=== PATIENT | male | born 1970 ===

== ENCOUNTER 2017-09-16 01:32 | Inpatient (IN) | payer SELFPAY ==
--- NOTE | 2017-09-16 01:37 | C.PDOC ---
History Of Present Illness Patient presents to the ER after he was found on the bathroom floor by his , last seen in [facility] at around 22:00. Patient presents now with a laceration to the right forehead and post ictal, patient has a Hx of similar years ago. Time Seen by Provider: 09/16/17 01:36 History Per: Patient History/Exam Limitations: no limitations Onset/Duration Of Symptoms: Hrs Current Symptoms Are (Timing): Still Present Severity: Moderate Pain Scale Rating Of: 4 Recent travel outside of the [place]: No Additional History Per: Family Past Medical History Reviewed: Historical Data, Nursing Documentation, Vital Signs Vital Signs: Last Vital Signs Temp 97.6 F 09/16/17 01:41 Pulse 73 09/16/17 02:52 Resp 18 09/16/17 02:52 BP 125/92 H 09/16/17 02:52 Pulse Ox 95 09/16/17 03:15 Family History: States: No Known Family Hx Review Of Systems Constitutional: Positive for: Sweats Cardiovascular: Negative for: Chest Pain Respiratory: Negative for: Cough, Shortness of Breath Gastrointestinal: Negative for: Nausea, Vomiting Musculoskeletal: Positive for: Back Pain Skin: Positive for: Other (Laceration to right forehead) Neurological: Positive for: Headache, Other (Post ictal) Psych: Negative for: Anxiety Physical Exam - Physical Exam Appears: Non-toxic, Confused (Slightly) Skin: Warm, Dry, Diaphoretic (Slightly) Head: Normacephalic, Laceration (irregular 5cm to right eye brow) Eye(s): bilateral: Normal Inspection, PERRL, EOMI Oral Mucosa: Moist Neck: No Midline Cervical Tenderness, No Paracervical Tenderness, Supple Chest: Symmetrical, No Tenderness Cardiovascular: Rhythm Regular Respiratory: No Rales, No Rhonchi, No Wheezing Gastrointestinal/Abdominal: Soft, No Tenderness Back: Normal Inspection Extremity: Other (Moves all extremities) Extremity: Bilateral: Atraumatic Pulses: Left Dorsalis Pedis: Normal, Right Dorsalis Pedis: Normal Neurological/Psych: Oriented x3 Gait: Unable To Assess ED Course And Treatment - Laboratory Results Result Diagrams: 09/16/17 02:01 09/16/17 02:01 ECG: Interpreted By Me, Viewed By Me ECG Rhythm: Sinus Rhythm (77), Nonspecific Changes O2 Sat by Pulse Oximetry: 95 Pulse Ox Interpretation: Normal - Radiology CXR: Interpreted by Me, Viewed By Me Progress Note: Blood work, CT cervical spine, CT head, and CT maxillofacial ordered. Disposition Discussed With Dr.: Flavio Waldron Comment: accepted the pt on his service and took over the care at 3:57 AM Doctor Will See Patient In The: ED Counseled Patient/Family Regarding: Studies Performed, Diagnosis - Disposition Disposition: HOSPITALIZED Disposition Time: 01:37 Condition: FAIR - POA Present On Arrival: Falls Or Trauma - Clinical Impression Clinical Impression: Syncope and collapse, Laceration of forehead - Scribe Statement The provider has reviewed the documentation as recorded by the Scribe Anish Santiago All medical record entries made by the Scribe were at my direction and personally dictated by me. I have reviewed the chart and agree that the record accurately reflects my personal performance of the history, physical exam, medical decision making, and the department course for this patient. I have also personally directed, reviewed, and agree with the discharge instructions and disposition. Decision To Admit - Pt Status Changed To: Hospital Disposition Of: Inpatient - Admit Certification Admit to Inpatient:: After my assessment, the patient will require hospitalization for at least two midnights. This is because of the severity of symptoms shown, intensity of services needed, and/or the medical risk in this patient being treated as an outpatient. - InPatient: Physician Admission Certification: I certify that this patient requires 2 or more midnights of care for the following reason:: After my assessment, the patient will require hospitalization for at least two midnights. This is because of the severity of symptoms shown, intensity of services needed, and/or the medical risk in this patient being treated as an outpatient. - . Bed Request Type: Telemetry Admitting Physician: Flavio Waldron Patient Diagnosis: Syncope and collapse, Laceration of forehead
[2017-09-16 02:08] LABS: BASO # 0.1 K/uL (0.0-0.2); BASO % 0.9 % (0.0-2.0); EOS # 0.2 K/uL (0.0-0.7); EOS % 2.8 % (0.0-4.0); HEMOGLOBIN 14.7 g/dL (12.0-18.0); LYMPH # 3.4 K/uL (1.0-4.3); LYMPH % 40.8 % (20.0-40.0); MEAN CELL VOLUME 80.3 fL (80.0-94.0); MEAN CORPUSCULAR HEMOGLOBIN 28.2 pg (27.0-31.0); MEAN CORPUSCULAR HGB CONC 35.1 g/dL (33.0-37.0); MEAN PLATELET VOLUME 8.2 fL (7.2-11.7); MONO # 0.5 K/uL (0.0-0.8); MONO % 6.4 % (0.0-10.0); NEUT # 4.1 K/uL (1.8-7.0); NEUT % 49.1 % (50.0-75.0); NRBC % 0.1 % (0.0-2.0); RBC 5.24 Mil/uL (4.40-5.90); RED CELL DISTRIBUTION WIDTH 14.1 % (11.5-14.5); WHITE BLOOD COUNT 8.3 K/uL (4.8-10.8)
[2017-09-16 02:13] LABS: PROTHROMBIN TIME 10.9 SECONDS (9.7-12.2)
[2017-09-16 02:16] LABS: ALB/GLOB RATIO 1.2 (1.0-2.1); ALBUMIN 4.5 g/dL (3.5-5.0); ALT/SGPT 65 U/L (21-72); AST/SGOT 39 U/L (17-59); BLOOD UREA NITROGEN 15 mg/dL (9-20); CALCIUM 9.7 mg/dl (8.6-10.4); GFR AFRICAN-AMERICAN > 60; GFR NON-AFRICAN AMERICAN > 60
--- NOTE | 2017-09-16 03:04 | CT ---
EXAM: CT Head Without Intravenous Contrast CLINICAL HISTORY: 46 years old, male; Pain; Headache; Additional info: Head trauma. Fell, unknown resone TECHNIQUE: Axial computed tomography images of the head/brain without intravenous contrast. All CT scans at this facility use one or more dose reduction techniques, viz.: automated exposure control; ma/kV adjustment per patient size (including targeted exams where dose is matched to indication; i.e. head); or iterative reconstruction technique. Coronal and sagittal reformatted images were created and reviewed. COMPARISON: No relevant prior studies available. FINDINGS: Limitations: Suboptimal positioning. Brain: Mild atrophy. No intracranial hemorrhage. No mass. Few scattered foci of decreased attenuation within periventricular/subcortical white matter. No edema. Ventricles: No hydrocephalus. Bones/joints: No calvarial fracture. Mastoid air cells: No mastoid effusion. IMPRESSION: 1. No intracranial hemorrhage. 2. Nonspecific white matter changes. 3. See facial bone CT report for additional details. 4. Incidental/non-acute findings are described above.
--- NOTE | 2017-09-16 03:08 | CT ---
EXAM: CT Cervical Spine Without Intravenous Contrast CLINICAL HISTORY: 46 years old, male; Pain; Neck pain; Additional info: Head trauma TECHNIQUE: Axial computed tomography images of the cervical spine without intravenous contrast. All CT scans at this facility use one or more dose reduction techniques, viz.: automated exposure control; ma/kV adjustment per patient size (including targeted exams where dose is matched to indication; i.e. head); or iterative reconstruction technique. Coronal and sagittal reformatted images were created and reviewed. COMPARISON: No relevant prior studies available. FINDINGS: Limitations: Suboptimal positioning. Vertebrae: No acute fracture. Straightening of cervical spine. Anterior osteophytes. Discs/spinal canal/neural foramina: No significant spinal stenosis. Soft tissues: Unremarkable. Lymph nodes: Calcified hilar lymph node. Lung apices: Unremarkable as visualized. IMPRESSION: 1. No fracture. 2. See facial bone CT report for additional details. 3. Incidental/non-acute findings are described above.
--- NOTE | 2017-09-16 03:12 | CT ---
EXAM: CT Maxillofacial Without Intravenous Contrast CLINICAL HISTORY: 46 years old, male; Pain; Eye pain; Right; Additional info: Head trauma TECHNIQUE: Axial computed tomography images of the face without intravenous contrast. All CT scans at this facility use one or more dose reduction techniques, viz.: automated exposure control; ma/kV adjustment per patient size (including targeted exams where dose is matched to indication; i.e. head); or iterative reconstruction technique. Coronal and sagittal reformatted images were created and reviewed. COMPARISON: No relevant prior studies available. FINDINGS: Bones/joints: No acute fracture. Soft tissues: RIGHT periorbital soft tissue swelling/irregularity. Few small radiopaque foreign bodies and/or calcifications about RIGHT periorbital region. Dermal calcifications. Orbits: Unremarkable as visualized. Sinuses: Scattered minimal to mild mucosal thickening. Few retention cysts. No air-fluid levels. Dental: Periapical lucency compatible with dental disease. IMPRESSION: 1. No fracture. 2. Incidental/non-acute findings are described above.
[2017-09-16] MEDS ORDERED: Lidocaine Hydrochloride 5 ML INJ ONE (03:36)
--- NOTE | 2017-09-16 04:32 | CP.PCM.HP ---
<Brad Lanier - Last Filed: 09/16/17 05:25> History of Present Illness - History of Present Illness History of Present Illness: CC: fall PMD: None FULL CODE This patient is a 46yo M who is coming to the hospital s/p fall at 10:00pm witnessed by ; he states he does not remember any of the event and has a laceration on his right forehead (now sutured and closed). he states that this happened to him one year ago, and was never told why it happens. He denies any inciting events, denies chest pain before the fall, current chest pain, or any other symptoms; denies fevers/chills, REAVES, CP, SOB, abdominal pain, N/V/D, dysuria/urgency/frequency, or lower extremity swelling/pain. As per mother who lives with with him, she states this happened one year prior very similarly. She saw him shaking on the ground, convulsing. The patient denies any tongue biting/fecal incontinence/urinary incontinence. He has never been on seizure medication. PMhx: denies Medications: Denies Allergies: Denies Surgeries: Denies FamHx: DM; denies cancer or other medical problems Social: lives at home with , independent in IADL and ADL, former smoker 1/2- 1pack for 20 years, denies EtOH or illicit drug use Present on Admission - Present on Admission Any Indicators Present on Admission: Yes History of DVT/PE: No History of Uncontrolled Diabetes: No Urinary Catheter: No Decubitus Ulcer Present: No Past Patient History - Past Social History Smoking Status: Never Smoked - PSYCHIATRIC Hx Substance Use: No - SURGICAL HISTORY Hx Surgeries: No Meds Allergies/Adverse Reactions: Allergies Allergy/AdvReac Type Severity Reaction Status Date / Time No Known Allergies Allergy Unverified 09/16/17 01:48 Physical Exam - Constitutional Additional comments: obvious scar on forehead, sutured with dermabond, no bleeding right eye red, and swollen - Head Exam Head Exam: absent: ATRAUMATIC - Eye Exam Eye Exam: EOMI, PERRL. absent: Scleral icterus - ENT Exam ENT Exam: Mucous Membranes Moist Additional comments: tongue biting present - Neck Exam Neck exam: Positive for: Full Rom. Negative for: Lymphadenopathy - Respiratory Exam Respiratory Exam: Clear to Auscultation Bilateral, NORMAL BREATHING PATTERN. absent: Rales, Rhonchi, Wheezes - Cardiovascular Exam Cardiovascular Exam: REGULAR RHYTHM, RRR, +S1, +S2. absent: Clicks, Diastolic murmur, JVD, Systolic Murmur - GI/Abdominal Exam GI & Abdominal Exam: Normal Bowel Sounds, Soft. absent: Organomegaly, Pulsatile Mass, Rebound, Tenderness Additional comments: no surgical scars noted - Extremities Exam Extremities exam: Positive for: full ROM. Negative for: calf tenderness, joint swelling, tenderness - Back Exam Back exam: NORMAL INSPECTION. absent: CVA tenderness (L), CVA tenderness (R) - Neurological Exam Neurological exam: Alert, Oriented x3 Additional comments: ANOx3, intact sensorium - Psychiatric Exam Psychiatric exam: Normal Affect - Skin Skin Exam: Warm Results - Vital Signs Recent Vital Signs: Last Vital Signs Temp 97.6 F 09/16/17 01:41 Pulse 73 09/16/17 02:52 Resp 18 09/16/17 02:52 BP 125/92 H 09/16/17 02:52 Pulse Ox 95 09/16/17 03:59 - Labs Result Diagrams: 09/16/17 02:01 09/16/17 02:01 Labs: Laboratory Results - last 24 hr 09/16/17 09/16/17 09/16/17 02:01 02:01 02:01 WBC 8.3 RBC 5.24 Hgb 14.7 Hct 42.0 MCV 80.3 MCH 28.2 MCHC 35.1 RDW 14.1 Plt Count 286 MPV 8.2 Neut % (Auto) 49.1 L Lymph % (Auto) 40.8 H Holmes % (Auto) 6.4 Eos % (Auto) 2.8 Baso % (Auto) 0.9 Neut # (Auto) 4.1 Lymph # (Auto) 3.4 Holmes # (Auto) 0.5 Eos # (Auto) 0.2 Baso # (Auto) 0.1 PT 10.9 INR 1.0 APTT 31 Sodium 143 Potassium 4.0 Chloride 100 Carbon Dioxide 25 Anion Gap 22 H BUN 15 Creatinine 1.2 Est GFR ( Amer) > 60 Est GFR (Non-Af Amer) > 60 Random Glucose 155 H Calcium 9.7 Total Bilirubin 0.7 AST 39 ALT 65 Alkaline Phosphatase 113 Total Protein 8.1 Albumin 4.5 Globulin 3.6 Albumin/Globulin Ratio 1.2 Alcohol, Quantitative 09/16/17 02:55 WBC RBC Hgb Hct MCV MCH MCHC RDW Plt Count MPV Neut % (Auto) Lymph % (Auto) Holmes % (Auto) Eos % (Auto) Baso % (Auto) Neut # (Auto) Lymph # (Auto) Holmes # (Auto) Eos # (Auto) Baso # (Auto) PT INR APTT Sodium Potassium Chloride Carbon Dioxide Anion Gap BUN Creatinine Est GFR ( Amer) Est GFR (Non-Af Amer) Random Glucose Calcium Total Bilirubin AST ALT Alkaline Phosphatase Total Protein Albumin Globulin Albumin/Globulin Ratio Alcohol, Quantitative < 10 Assessment & Plan - Assessment and Plan (Free Text) Assessment: 46yo M admitted for syncope, likely 2nd seizure Syncope -most likely 2nd seizure as per symptoms -f/u EEG -f/u Neuro recs; Dr. Shepherd; thank you for your help -f/u brain MRI -f/u NICKI -EKG with nonspecific T wave changes and localized ST segment elevations -f/u EKG -f/u mag and phos; other electrolytes WNL -f/u Echo Proph -chemical DVT prophylaxis contraindicated w/ recent head trauma -GI prophylaxis not indicated Discussed and seen with Dr. Vanita Lanier PGY2 Brian WATTS Decision To Admit - Pt Status Changed To: Hospital Disposition Of: Inpatient - Admit Certification Admit to Inpatient:: After my assessment, the patient will require hospitalization for at least two midnights. This is because of the severity of symptoms shown, intensity of services needed, and/or the medical risk in this patient being treated as an outpatient. - InPatient: Physician Admission Certification:: new onset seizure - . Bed Request Type: Telemetry Admitting Physician: Flavio Waldron <Flavio Waldron - Last Filed: 09/16/17 06:42> Results - Vital Signs Recent Vital Signs: Last Vital Signs Temp 97.9 F 09/16/17 04:52 Pulse 72 09/16/17 04:52 Resp 16 09/16/17 04:52 BP 133/87 09/16/17 04:52 Pulse Ox 97 09/16/17 04:52 - Labs Result Diagrams: 09/16/17 02:01 09/16/17 02:01 Labs: Laboratory Results - last 24 hr 09/16/17 09/16/1718 02:01 02:01 02:01 WBC 8.3 RBC 5.24 Hgb 14.7 Hct 42.0 MCV 80.3 MCH 28.2 MCHC 35.1 RDW 14.1 Plt Count 286 MPV 8.2 Neut % (Auto) 49.1 L Lymph % (Auto) 40.8 H Holmes % (Auto) 6.4 Eos % (Auto) 2.8 Baso % (Auto) 0.9 Neut # (Auto) 4.1 Lymph # (Auto) 3.4 Holmes # (Auto) 0.5 Eos # (Auto) 0.2 Baso # (Auto) 0.1 PT 10.9 INR 1.0 APTT 31 Sodium 143 Potassium 4.0 Chloride 100 Carbon Dioxide 25 Anion Gap 22 H BUN 15 Creatinine 1.2 Est GFR ( Amer) > 60 Est GFR (Non-Af Amer) > 60 Random Glucose 155 H Calcium 9.7 Phosphorus Magnesium Total Bilirubin 0.7 AST 39 ALT 65 Alkaline Phosphatase 113 Total Creatine Kinase CK-MB (Mass) Troponin I Total Protein 8.1 Albumin 4.5 Globulin 3.6 Albumin/Globulin Ratio 1.2 Triglycerides Cholesterol LDL Cholesterol Direct HDL Cholesterol Free T4 TSH 3rd Generation Alcohol, Quantitative 09/16/17 09/16/17 09/16/17 02:55 04:44 04:44 WBC RBC Hgb Hct MCV MCH MCHC RDW Plt Count MPV Neut % (Auto) Lymph % (Auto) Holmes % (Auto) Eos % (Auto) Baso % (Auto) Neut # (Auto) Lymph # (Auto) Holmes # (Auto) Eos # (Auto) Baso # (Auto) PT INR APTT Sodium Potassium Chloride Carbon Dioxide Anion Gap BUN Creatinine Est GFR ( Amer) Est GFR (Non-Af Amer) Random Glucose Calcium Phosphorus 2.7 Magnesium 2.1 Total Bilirubin AST ALT Alkaline Phosphatase Total Creatine Kinase 274 H CK-MB (Mass) 1.46 Troponin I 0.0130 Total Protein Albumin Globulin Albumin/Globulin Ratio Triglycerides 702 H Cholesterol 314 H LDL Cholesterol Direct 104 HDL Cholesterol 33 Free T4 1.20 TSH 3rd Generation 1.58 Alcohol, Quantitative < 10 Attending/Attestation - Attestation I have personally seen and examined this patient.: Yes I have fully participated in the care of the patient.: Yes I have reviewed all pertinent clinical information: Yes Notes (Text): Assessment * Seizure episode as described by patient mother. Patient has tounge bite underside on left side. H/o menengitis during child ng, similar episode 1 yr back, but no other episode as per the patent and mother. Patient doesn't drive, but works in warehouse, does loading and unloading. Injuries form the episode right forehead laceration, right knee scraping. Plan IVF EEG, MRI without contrast Suggest to be on antiepileptic, await EEG, MRI, and neurology input regarding same. See orders for detail.
[2017-09-16 05:18] LABS: CK-MB 1.46 ng/mL (0.0-3.38); TROPONIN I 0.013 ng/mL (0.00-0.120)
[2017-09-16] MEDS ORDERED: Tetanus/Diphtheria Toxoids 0.5 ml Syringe IM ONE (05:22)
[2017-09-16 09:47] LABS: URINE AMORPHOUS SEDIMENT RARE /ul (<OCC); URINE BACTERIA RARE (<OCC); URINE BILIRUBIN NEGATIVE (NEGATIVE); URINE BLOOD 1+ (NEGATIVE); URINE CLARITY Hazy (Clear); URINE COLOR Yellow (YELLOW); URINE GLUCOSE (UA) NORMAL (Normal); URINE LEUKOCYTE ESTERASE NEG Leu/uL (Negative); URINE PROTEIN NEGATIVE (NEGATIVE); URINE UROBILINOGEN NORMAL mg/dL (0.2-1.0)
[2017-09-16] MEDS: Pantoprazole 40 mg EC Tab PO SCH (09:47)
--- NOTE | 2017-09-16 09:55 | RAD ---
HISTORY: trauma COMPARISON: None TECHNIQUE: Chest one view . FINDINGS: LUNGS: No focal consolidation is seen. PLEURA: No pleural effusion is identified. CARDIOVASCULAR: Heart size is within normal limits. OSSEOUS STRUCTURES: Visualized osseous structures are unremarkable. VISUALIZED UPPER ABDOMEN: Unremarkable. OTHER FINDINGS: None. IMPRESSION: No acute cardiopulmonary process seen.
[2017-09-16 10:54] LABS: CK-MB 2.09 ng/mL (0.0-3.38)
[2017-09-16 11:13] LABS: BARBITURATES, UR NEGATIVE (NEGATIVE); BENZODIAZEPINES, UR NEGATIVE (NEGATIVE); OPIATES, UR NEGATIVE (NEGATIVE); PHENCYCLIDINE, UR NEGATIVE (NEGATIVE)
--- NOTE | 2017-09-16 12:39 | MRI ---
PROCEDURE: MRI BRAIN WITHOUT CONTRAST HISTORY: seizures COMPARISON: Unenhanced head CT 09/16/2017. TECHNIQUE: Multiplanar, multisequence MR images of the brain were obtained without intravenous contrast enhancement. FINDINGS: HEMORRHAGE: None DWI: No evidence of an acute or early subacute infarction. BRAIN PARENCHYMA: Trace subcortical white matter changes are appreciate the bilateral frontal and temporal lobes as well as the left parietal lobe the spare the corpus callosum and is well as remaining white matter throughout the remainder of the brain. This is a nonspecific pattern could reflect early chronic microangiopathy in a patient with a vasculopathic disorder, but if not, then hypertension or migraine headaches or other pathologies are not excluded including vasculitis Lyme disease and demyelination and follow-up MRI with contrast is advised to complete MR evaluation of the brain. Remainder the brain appears unremarkable. VENTRICLES: Unremarkable. No hydrocephalus. CRANIUM: Unremarkable. ORBITS: Grossly unremarkable. PARANASAL SINUSES/MASTOIDS: Trace bilateral maxillary sinus disease incidentally noted. VASCULAR SYSTEM: Skull base flow voids intact. OTHER FINDINGS: None. IMPRESSION: Infrequent subcortical white matter changes are appreciated which are minimal finding but abnormal for patient 38 years unless she has a vasculopathic disorder, in which case could reflect early chronic microangiopathy. Follow-up MRI is advised with contrast there is no prior history of such. No evidence intra hemorrhage, mass effect, cortical edema or acute/ subacute brain infarction at this time.
--- NOTE | 2017-09-16 16:04 | CARD ---
APPROVED REPORT EXAM: Two-dimensional and M-mode echocardiogram with Doppler and color Doppler. Other Information Quality : [employer] : INDICATION Syncope Fall 2D DIMENSIONS IVSd1.3 (0.7-1.1cm)LVDd3.4 (3.9-5.9cm) PWd1.3 (0.7-1.1cm)LVDs2.1 (2.5-4.0cm) FS (%) 37.5 %LVEF (%)68.8 (>50%) M-Mode DIMENSIONS Left Atrium (MM)2.79 (2.5-4.0cm)Aortic Root3.43 (2.2-3.7cm) Aortic Cusp Exc.1.99 (1.5-2.0cm) Mitral Valve MV E Adrcaoeh00.0cm/sMV A Ordxfydx70.0cm/sE/A ratio1.2 TDI E/Lateral E'0.0E/Medial E'0.0 Tricuspid Valve TR Peak Plhnyjnp682jw/sTR Peak Gr.22mmHg LEFT VENTRICLE The left ventricle is normal size. There is normal left ventricular wall thickness. The left ventricular systolic function is normal. The left ventricular ejection fraction is within the normal range. There is normal LV segmental wall motion. The left ventricular diastolic function is normal. RIGHT VENTRICLE The right ventricle is normal size. There is normal right ventricular wall thickness. The right ventricular systolic function is normal. ATRIA The left atrium size is normal. The right atrium size is normal. The interatrial septum is intact with no evidence for an atrial septal defect. AORTIC VALVE The aortic valve is normal in structure. No aortic regurgitation is present. MITRAL VALVE The mitral valve is normal in structure. There is no mitral valve regurgitation noted. TRICUSPID VALVE The tricuspid valve is normal in structure. There is trace to mild tricuspid regurgitation. Right ventricular systolic pressure is estimated at less than 30 mmHg. PULMONIC VALVE The pulmonary valve is normal in structure. GREAT VESSELS The aortic root is normal in size. The IVC is normal in size and collapses >50% with inspiration. PERICARDIAL EFFUSION There is no pericardial effusion. <Conclusion> Normal bi-ventricular function. No valvular abnormality. No pericardial effusion.
[2017-09-16] MEDS: (Novolog) Insulin Aspart, Recombinant 100 u/ml 10 ml vial SC SCH ×2 (16:48→21:30)
[2017-09-16 17:03] LABS: CK-MB 1.34 ng/mL (0.0-3.38)
--- NOTE | 2017-09-16 17:39 | CP.PCM.PCO ---
Physician Communication Note - Physician Communication Note Physician Communication Note: Patient with right forhead and brow laceration Assessment & Plan - Assessment and Plan (Free Text) Assessment: CT scan reviewed. There appears to be 2 small califications o superior and lateral to the right eye which could be metalic foreign body or glass. Clinically, the laceration is well approximated. There is no infection. THe wound was well irrigated before being closed. Plan to let heal. If the FB bothers him because it is palpable, it can be removed at a later time after his acute hospitalization is resolved.
--- NOTE | 2017-09-16 17:42 | CP.PCM.CON ---
History of Present Illness - History of Present Illness History of Present Illness: Surgery- Dr. Larose Reason for Consult: Possible foreign body s/p fall 46M presents to [facility] ED s/p fall last night most likely 2/2 seizure and subsequently had a right right forehead laceration. Laceration was closed last night and was copiously irrigated. Prior to closing the wound, X-Rays were taken with on foreign body identified at that time. Patient denies fevers, cjills, chest pain, shortness of breath, changes in vision. PMH: denies PSH: Denies ALL: NKDA SocialHx: former smoker 1/2 ppd for 20 years. denies etoh or recreational drug use Review of Systems - Review of Systems All systems: reviewed and no additional remarkable complaints except - Constitutional Constitutional: As Per HPI Past Patient History - Past Medical History & Family History Past Medical History?: Yes - Past Social History Smoking Status: Never Smoked - NEUROLOGICAL Hx Syncope: Yes - MUSCULOSKELETAL/RHEUMATOLOGICAL Hx Falls: Yes - PSYCHIATRIC Hx Substance Use: No - SURGICAL HISTORY Hx Surgeries: No - ANESTHESIA Hx Anesthesia: No Hx Anesthesia Reactions: No Hx Malignant Hyperthermia: No Meds Allergies/Adverse Reactions: Allergies Allergy/AdvReac Type Severity Reaction Status Date / Time No Known Allergies Allergy Unverified 09/16/17 01:48 - Medications Medications: Current Medications Acetaminophen (Tylenol 325mg Tab) 650 mg PO Q6 PRN PRN Reason: Fever >100.4 F Insulin Aspart (Novolog) 0 unit SC ACHS [facility] PRN Reason: Protocol Last Admin: 09/16/17 16:48 Dose: Not Given Ketorolac Tromethamine (Toradol) 15 mg IV Q6 PRN PRN Reason: Pain, severe (8-10) Ondansetron HCl (Zofran Inj) 4 mg IVP Q6 PRN PRN Reason: Nausea/Vomiting Pantoprazole Sodium (Protonix Ec Tab) 40 mg PO DAILY [facility] Last Admin: 09/16/17 09:47 Dose: 40 mg Physical Exam - Constitutional Appears: Non-toxic, No Acute Distress - Head Exam Additional comments: Right forehead laceration. Closed w/ dermabond no signs of overt foreign body Fozia-orbital swelling 2/2 trauma and fall - Eye Exam Eye Exam: EOMI, PERRL - Neck Exam Neck exam: Positive for: Normal Inspection - Respiratory Exam Respiratory Exam: NORMAL BREATHING PATTERN. absent: Accessory Muscle Use, Respiratory Distress - Cardiovascular Exam Cardiovascular Exam: +S1, +S2. absent: Bradycardia, Tachycardia - GI/Abdominal Exam GI & Abdominal Exam: Soft. absent: Bruit, Distended, Firm, Guarding, Tenderness - Neurological Exam Neurological exam: Alert, Oriented x3 - Skin Skin Exam: Intact, Warm Results - Vital Signs Recent Vital Signs: Last Vital Signs Temp 98.4 F 09/16/17 12:50 Pulse 65 09/16/17 10:00 Resp 20 09/16/17 05:15 BP 133/87 09/16/17 04:52 Pulse Ox 96 09/16/17 12:50 - Labs Result Diagrams: 09/16/17 02:01 09/16/17 02:01 Labs: Laboratory Results - last 24 hr 09/16/17 09/16/17 09/16/17 01:45 02:01 02:01 WBC 8.3 RBC 5.24 Hgb 14.7 Hct 42.0 MCV 80.3 MCH 28.2 MCHC 35.1 RDW 14.1 Plt Count 286 MPV 8.2 Neut % (Auto) 49.1 L Lymph % (Auto) 40.8 H [place] % (Auto) 6.4 Eos % (Auto) 2.8 Baso % (Auto) 0.9 Neut # (Auto) 4.1 Lymph # (Auto) 3.4 [place] # (Auto) 0.5 Eos # (Auto) 0.2 Baso # (Auto) 0.1 PT 10.9 INR 1.0 APTT 31 Sodium Potassium Chloride Carbon Dioxide Anion Gap BUN Creatinine Est GFR ( Amer) Est GFR (Non-Af Amer) POC Glucose (mg/dL) 141 H Random Glucose Hemoglobin A1c Calcium Phosphorus Magnesium Total Bilirubin AST ALT Alkaline Phosphatase Total Creatine Kinase CK-MB (Mass) Troponin I Total Protein Albumin Globulin Albumin/Globulin Ratio Triglycerides Cholesterol LDL Cholesterol Direct HDL Cholesterol Free T4 TSH 3rd Generation Urine Color Urine Clarity Urine pH Ur Specific [place] Urine Protein Urine Glucose (UA) Urine Ketones Urine Blood Urine Nitrate Urine Bilirubin Urine Urobilinogen Ur Leukocyte Esterase Urine WBC (Auto) Urine RBC (Auto) Amorphous Sediment Urine Bacteria Urine Opiates Screen Urine Methadone Screen Ur Barbiturates Screen Ur Phencyclidine Scrn Ur Amphetamines Screen U Benzodiazepines Scrn U Oth Cocaine Metabols U Cannabinoids Screen Alcohol, Quantitative 09/16/17 09/16/17 09/16/17 02:01 02:55 03:41 WBC RBC Hgb Hct MCV MCH MCHC RDW Plt Count MPV Neut % (Auto) Lymph % (Auto) [place] % (Auto) Eos % (Auto) Baso % (Auto) Neut # (Auto) Lymph # (Auto) [place] # (Auto) Eos # (Auto) Baso # (Auto) PT INR APTT Sodium 143 Potassium 4.0 Chloride 100 Carbon Dioxide 25 Anion Gap 22 H BUN 15 Creatinine 1.2 Est GFR ( Amer) > 60 Est GFR (Non-Af Amer) > 60 POC Glucose (mg/dL) Random Glucose 155 H Hemoglobin A1c Calcium 9.7 Phosphorus Magnesium Total Bilirubin 0.7 AST 39 ALT 65 Alkaline Phosphatase 113 Total Creatine Kinase CK-MB (Mass) Troponin I Total Protein 8.1 Albumin 4.5 Globulin 3.6 Albumin/Globulin Ratio 1.2 Triglycerides Cholesterol LDL Cholesterol Direct HDL Cholesterol Free T4 TSH 3rd Generation Urine Color Urine Clarity Urine pH Ur Specific [place] Urine Protein Urine Glucose (UA) Urine Ketones Urine Blood Urine Nitrate Urine Bilirubin Urine Urobilinogen Ur Leukocyte Esterase Urine WBC (Auto) Urine RBC (Auto) Amorphous Sediment Urine Bacteria Urine Opiates Screen Negative Urine Methadone Screen Negative Ur Barbiturates Screen Negative Ur Phencyclidine Scrn Negative Ur Amphetamines Screen Negative U Benzodiazepines Scrn Negative U Oth Cocaine Metabols Negative U Cannabinoids Screen Negative Alcohol, Quantitative < 10 09/16/17 09/16/17 09/16/17 04:44 04:44 04:44 WBC RBC Hgb Hct MCV MCH MCHC RDW Plt Count MPV Neut % (Auto) Lymph % (Auto) [place] % (Auto) Eos % (Auto) Baso % (Auto) Neut # (Auto) Lymph # (Auto) [place] # (Auto) Eos # (Auto) Baso # (Auto) PT INR APTT Sodium Potassium Chloride Carbon Dioxide Anion Gap BUN Creatinine Est GFR ( Amer) Est GFR (Non-Af Amer) POC Glucose (mg/dL) Random Glucose Hemoglobin A1c 7.5 H Calcium Phosphorus 2.7 Magnesium 2.1 Total Bilirubin AST ALT Alkaline Phosphatase Total Creatine Kinase 274 H CK-MB (Mass) 1.46 Troponin I 0.0130 Total Protein Albumin Globulin Albumin/Globulin Ratio Triglycerides 702 H Cholesterol 314 H LDL Cholesterol Direct 104 HDL Cholesterol 33 Free T4 1.20 TSH 3rd Generation 1.58 Urine Color Urine Clarity Urine pH Ur Specific [place] Urine Protein Urine Glucose (UA) Urine Ketones Urine Blood Urine Nitrate Urine Bilirubin Urine Urobilinogen Ur Leukocyte Esterase Urine WBC (Auto) Urine RBC (Auto) Amorphous Sediment Urine Bacteria Urine Opiates Screen Urine Methadone Screen Ur Barbiturates Screen Ur Phencyclidine Scrn Ur Amphetamines Screen U Benzodiazepines Scrn U Oth Cocaine Metabols U Cannabinoids Screen Alcohol, Quantitative 09/16/17 09/16/17 09/16/17 06:28 08:13 10:24 WBC RBC Hgb Hct MCV MCH MCHC RDW Plt Count MPV Neut % (Auto) Lymph % (Auto) [place] % (Auto) Eos % (Auto) Baso % (Auto) Neut # (Auto) Lymph # (Auto) [place] # (Auto) Eos # (Auto) Baso # (Auto) PT INR APTT Sodium Potassium Chloride Carbon Dioxide Anion Gap BUN Creatinine Est GFR ( Amer) Est GFR (Non-Af Amer) POC Glucose (mg/dL) 127 H Random Glucose Hemoglobin A1c Calcium Phosphorus Magnesium Total Bilirubin AST ALT Alkaline Phosphatase Total Creatine Kinase 350 H CK-MB (Mass) 2.09 Troponin I < 0.0120 Total Protein Albumin Globulin Albumin/Globulin Ratio Triglycerides Cholesterol LDL Cholesterol Direct HDL Cholesterol Free T4 TSH 3rd Generation Urine Color Yellow Urine Clarity Hazy Urine pH 5.0 Ur Specific [place] 1.019 Urine Protein Negative Urine Glucose (UA) Normal Urine Ketones Negative Urine Blood 1+ H Urine Nitrate Negative Urine Bilirubin Negative Urine Urobilinogen Normal Ur Leukocyte Esterase Neg Urine WBC (Auto) 1 Urine RBC (Auto) 1 Amorphous Sediment Rare H Urine Bacteria Rare Urine Opiates Screen Urine Methadone Screen Ur Barbiturates Screen Ur Phencyclidine Scrn Ur Amphetamines Screen U Benzodiazepines Scrn U Oth Cocaine Metabols U Cannabinoids Screen Alcohol, Quantitative 09/16/17 09/16/17 09/16/17 12:04 16:27 16:36 WBC RBC Hgb Hct MCV MCH MCHC RDW Plt Count MPV Neut % (Auto) Lymph % (Auto) [place] % (Auto) Eos % (Auto) Baso % (Auto) Neut # (Auto) Lymph # (Auto) [place] # (Auto) Eos # (Auto) Baso # (Auto) PT INR APTT Sodium Potassium Chloride Carbon Dioxide Anion Gap BUN Creatinine Est GFR ( Amer) Est GFR (Non-Af Amer) POC Glucose (mg/dL) 118 H 141 H Random Glucose Hemoglobin A1c Calcium Phosphorus Magnesium Total Bilirubin AST ALT Alkaline Phosphatase Total Creatine Kinase 391 H CK-MB (Mass) 1.34 Troponin I < 0.0120 Total Protein Albumin Globulin Albumin/Globulin Ratio Triglycerides Cholesterol LDL Cholesterol Direct HDL Cholesterol Free T4 TSH 3rd Generation Urine Color Urine Clarity Urine pH Ur Specific [place] Urine Protein Urine Glucose (UA) Urine Ketones Urine Blood Urine Nitrate Urine Bilirubin Urine Urobilinogen Ur Leukocyte Esterase Urine WBC (Auto) Urine RBC (Auto) Amorphous Sediment Urine Bacteria Urine Opiates Screen Urine Methadone Screen Ur Barbiturates Screen Ur Phencyclidine Scrn Ur Amphetamines Screen U Benzodiazepines Scrn U Oth Cocaine Metabols U Cannabinoids Screen Alcohol, Quantitative Assessment & Plan - Assessment and Plan (Free Text) Assessment: 46M w/ forehead laceration s/p fall CT of head shows possible small foreign bodies or calcification CT scan reviewed calcification most likely due to trauma Plan: No surgical intervention medical mangement per primary and ICU team case discussed in detail with Dr. Larose surgical attending PGY1
--- NOTE | 2017-09-16 18:14 | CP.PCM.PN ---
Subjective - Date & Time of Evaluation Date of Evaluation: 09/16/17 Time of Evaluation: 08:00 - Subjective Subjective: Medicine progress note (Dr. Cardenas's service) Patient was seen and examined at bedside. Patient was resting comfortably in bed. Patient denies any acute complaints. Patient denies headache, blurry vision / visual disturbance, numbness/tingling, or weakness, chest pain, SOB, palpitations. Objective - Vital Signs/Intake and Output Vital Signs (last 24 hours): Temp Pulse Resp BP Pulse Ox 98.4 F 65 20 133/87 96 09/16/17 12:50 09/16/17 10:00 09/16/17 05:15 09/16/17 04:52 09/16/17 12:50 Intake and Output: 09/16/17 09/16/17 06:59 18:59 Intake Total 0 125 Output Total 400 450 Balance -400 -325 - Medications Medications: Current Medications Acetaminophen (Tylenol 325mg Tab) 650 mg PO Q6 PRN PRN Reason: Fever >100.4 F Insulin Aspart (Novolog) 0 unit SC ACHS [facility] PRN Reason: Protocol Last Admin: 09/16/17 16:48 Dose: Not Given Ketorolac Tromethamine (Toradol) 15 mg IV Q6 PRN PRN Reason: Pain, severe (8-10) Ondansetron HCl (Zofran Inj) 4 mg IVP Q6 PRN PRN Reason: Nausea/Vomiting Pantoprazole Sodium (Protonix Ec Tab) 40 mg PO DAILY [facility] Last Admin: 09/16/17 09:47 Dose: 40 mg - Labs Labs: 09/16/17 02:01 09/16/17 02:01 PT 10.9 SECONDS (9.7-12.2) 09/16/17 02:01 INR 1.0 09/16/17 02:01 APTT 31 SECONDS (21-34) 09/16/17 02:01 - Constitutional Appears: Well, No Acute Distress - Head Exam Head Exam: ATRAUMATIC, NORMAL INSPECTION Additional comments: Right sided periorbital laceration, sutured and closed - Eye Exam Eye Exam: EOMI, Normal appearance - ENT Exam ENT Exam: Mucous Membranes Moist - Respiratory Exam Respiratory Exam: Clear to Ausculation Bilateral, NORMAL BREATHING PATTERN. absent: Prolonged Expiratory Phase, Rhonchi, Wheezes, Respiratory Distress - Cardiovascular Exam Cardiovascular Exam: REGULAR RHYTHM, +S1, +S2. absent: Murmur - GI/Abdominal Exam GI & Abdominal Exam: Soft, Normal Bowel Sounds. absent: Distended, Firm, Guarding, Rigid, Tenderness - Extremities Exam Extremities Exam: Normal Inspection. absent: Calf Tenderness, Pedal Edema - Neurological Exam Neurological Exam: Alert, Awake, Oriented x3 Neuro motor strength exam: Left Upper Extremity: 5, Right Upper Extremity: 5, Left Lower Extremity: 5, Right Lower Extremity: 5 - Psychiatric Exam Psychiatric exam: Normal Affect - Skin Skin Exam: Normal Color Assessment and Plan (1) Status post seizure Assessment & Plan: Patient with history seizure 2 years ago, was never placed on medication Consultations: Neurology, Dr. Shepherd---> Help appreciated * Management as per recommendation Plastic Surgeon, Dr. Franks * Management as per recommendation (Few small radiopaque foreign bodies and/or calcifications about RIGHT periorbital region noted on the Maxillofacial CT) * As per documentation, Clinically, the laceration is well approximated. There is no infection. THe wound was well irrigated before being closed. Plan to let heal. If the FB bothers him because it is palpable, it can be removed at a later time after his acute hospitalization is resolved. Imaging: HEAD CT: No intracranial hemorrhage. Nonspecific white matter changes Brain MRI without contrast: Trace subcortical white matter changes are appreciate the bilateral frontal and temporal lobes as well as the left parietal lobe the spare the corpus callosum and is well as remaining white matter throughout the remainder of the brain. This is a nonspecific pattern could reflect early chronic microangiopathy in a patient with a vasculopathic disorder, but if not, then hypertension or migraine headaches or other pathologies are not excluded including vasculitis Lyme disease and demyelination and follow-up MRI with contrast is advised to complete MR evaluation of the brain. Remainder the brain appears unremarkable. Maxillofacial CT:Bones/joints: No acute fracture. Soft tissues: RIGHT periorbital soft tissue swelling/irregularity. Few small radiopaque foreign bodies and/or calcifications about RIGHT periorbital region. Dermal calcifications. Orbits: Unremarkable as visualized. Sinuses: Scattered minimal to mild mucosal thickening. Few retention cysts. No air-fluid levels. Dental: Periapical lucency compatible with dental disease. Cervical CT: No fracture. Echo: Normal bi-ventricular function. No valvular abnormality and no pericardial effusion. LV normal size. Medications: * Tylenol 650mg PO Q6H PRN * Toradol 15mg IV Q6H PRN * Zofran 4mg IV Q6H PRN (For Nausea) Status: Acute (2) Prophylactic measure Assessment & Plan: GI:Protonix 40mg PO daily DVT: SCDs All plans and management discussed with Dr. Cardenas Status: Acute
--- NOTE | 2017-09-16 20:29 | CP.PCM.CON ---
History of Present Illness - History of Present Illness History of Present Illness: 46 yr old male who said that he had a seizure 2 years ago, generalized tonic clonic and was taken to [facility] where he was discharged off medication. Then yesterday, patient had another strange feeling followed by another generalized seizure,with scalp laceration. MRI Brain and EEG have been done. MRI Brain is normal as is CT head and Ct cervical spine. PMH/PSH: none FH/SH: smokes 1/2 ppd for many years. All: nkda on exam: Severe right eye laceration. PERRL. EOMI. otherwise normal neurological exam. Gait not tested. +2 dtr ul and ll bl. Toes downgoing. No clonus. Past Patient History - Past Medical History & Family History Past Medical History?: Yes - Past Social History Smoking Status: Never Smoked - NEUROLOGICAL Hx Syncope: Yes - MUSCULOSKELETAL/RHEUMATOLOGICAL Hx Falls: Yes - PSYCHIATRIC Hx Substance Use: No - SURGICAL HISTORY Hx Surgeries: No - ANESTHESIA Hx Anesthesia: No Hx Anesthesia Reactions: No Hx Malignant Hyperthermia: No Meds Allergies/Adverse Reactions: Allergies Allergy/AdvReac Type Severity Reaction Status Date / Time No Known Allergies Allergy Unverified 09/16/17 01:48 - Medications Medications: Current Medications Acetaminophen (Tylenol 325mg Tab) 650 mg PO Q6 PRN PRN Reason: Fever >100.4 F Insulin Aspart (Novolog) 0 unit SC ACHS [facility] PRN Reason: Protocol Last Admin: 09/16/17 16:48 Dose: Not Given Ketorolac Tromethamine (Toradol) 15 mg IV Q6 PRN PRN Reason: Pain, severe (8-10) Ondansetron HCl (Zofran Inj) 4 mg IVP Q6 PRN PRN Reason: Nausea/Vomiting Pantoprazole Sodium (Protonix Ec Tab) 40 mg PO DAILY [facility] Last Admin: 09/16/17 09:47 Dose: 40 mg Rosuvastatin Calcium (Crestor) 10 mg PO HS [facility] Results - Vital Signs Recent Vital Signs: Last Vital Signs Temp 98.4 F 09/16/17 12:50 Pulse 65 09/16/17 10:00 Resp 20 09/16/17 05:15 BP 133/87 09/16/17 04:52 Pulse Ox 96 09/16/17 12:50 - Labs Result Diagrams: 09/16/17 02:01 09/16/17 02:01 Labs: Laboratory Results - last 24 hr 09/16/17 09/16/17 09/16/17 01:45 02:01 02:01 WBC 8.3 RBC 5.24 Hgb 14.7 Hct 42.0 MCV 80.3 MCH 28.2 MCHC 35.1 RDW 14.1 Plt Count 286 MPV 8.2 Neut % (Auto) 49.1 L Lymph % (Auto) 40.8 H [place] % (Auto) 6.4 Eos % (Auto) 2.8 Baso % (Auto) 0.9 Neut # (Auto) 4.1 Lymph # (Auto) 3.4 [place] # (Auto) 0.5 Eos # (Auto) 0.2 Baso # (Auto) 0.1 PT 10.9 INR 1.0 APTT 31 Sodium Potassium Chloride Carbon Dioxide Anion Gap BUN Creatinine Est GFR ( Amer) Est GFR (Non-Af Amer) POC Glucose (mg/dL) 141 H Random Glucose Hemoglobin A1c Calcium Phosphorus Magnesium Total Bilirubin AST ALT Alkaline Phosphatase Total Creatine Kinase CK-MB (Mass) Troponin I Total Protein Albumin Globulin Albumin/Globulin Ratio Triglycerides Cholesterol LDL Cholesterol Direct HDL Cholesterol Free T4 TSH 3rd Generation Urine Color Urine Clarity Urine pH Ur Specific [place] Urine Protein Urine Glucose (UA) Urine Ketones Urine Blood Urine Nitrate Urine Bilirubin Urine Urobilinogen Ur Leukocyte Esterase Urine WBC (Auto) Urine RBC (Auto) Amorphous Sediment Urine Bacteria Urine Opiates Screen Urine Methadone Screen Ur Barbiturates Screen Ur Phencyclidine Scrn Ur Amphetamines Screen U Benzodiazepines Scrn U Oth Cocaine Metabols U Cannabinoids Screen Alcohol, Quantitative 09/16/17 09/16/17 09/16/17 02:01 02:55 03:41 WBC RBC Hgb Hct MCV MCH MCHC RDW Plt Count MPV Neut % (Auto) Lymph % (Auto) [place] % (Auto) Eos % (Auto) Baso % (Auto) Neut # (Auto) Lymph # (Auto) [place] # (Auto) Eos # (Auto) Baso # (Auto) PT INR APTT Sodium 143 Potassium 4.0 Chloride 100 Carbon Dioxide 25 Anion Gap 22 H BUN 15 Creatinine 1.2 Est GFR ( Amer) > 60 Est GFR (Non-Af Amer) > 60 POC Glucose (mg/dL) Random Glucose 155 H Hemoglobin A1c Calcium 9.7 Phosphorus Magnesium Total Bilirubin 0.7 AST 39 ALT 65 Alkaline Phosphatase 113 Total Creatine Kinase CK-MB (Mass) Troponin I Total Protein 8.1 Albumin 4.5 Globulin 3.6 Albumin/Globulin Ratio 1.2 Triglycerides Cholesterol LDL Cholesterol Direct HDL Cholesterol Free T4 TSH 3rd Generation Urine Color Urine Clarity Urine pH Ur Specific [place] Urine Protein Urine Glucose (UA) Urine Ketones Urine Blood Urine Nitrate Urine Bilirubin Urine Urobilinogen Ur Leukocyte Esterase Urine WBC (Auto) Urine RBC (Auto) Amorphous Sediment Urine Bacteria Urine Opiates Screen Negative Urine Methadone Screen Negative Ur Barbiturates Screen Negative Ur Phencyclidine Scrn Negative Ur Amphetamines Screen Negative U Benzodiazepines Scrn Negative U Oth Cocaine Metabols Negative U Cannabinoids Screen Negative Alcohol, Quantitative < 10 09/16/17 09/16/17 09/16/17 04:44 04:44 04:44 WBC RBC Hgb Hct MCV MCH MCHC RDW Plt Count MPV Neut % (Auto) Lymph % (Auto) [place] % (Auto) Eos % (Auto) Baso % (Auto) Neut # (Auto) Lymph # (Auto) [place] # (Auto) Eos # (Auto) Baso # (Auto) PT INR APTT Sodium Potassium Chloride Carbon Dioxide Anion Gap BUN Creatinine Est GFR ( Amer) Est GFR (Non-Af Amer) POC Glucose (mg/dL) Random Glucose Hemoglobin A1c 7.5 H Calcium Phosphorus 2.7 Magnesium 2.1 Total Bilirubin AST ALT Alkaline Phosphatase Total Creatine Kinase 274 H CK-MB (Mass) 1.46 Troponin I 0.0130 Total Protein Albumin Globulin Albumin/Globulin Ratio Triglycerides 702 H Cholesterol 314 H LDL Cholesterol Direct 104 HDL Cholesterol 33 Free T4 1.20 TSH 3rd Generation 1.58 Urine Color Urine Clarity Urine pH Ur Specific [place] Urine Protein Urine Glucose (UA) Urine Ketones Urine Blood Urine Nitrate Urine Bilirubin Urine Urobilinogen Ur Leukocyte Esterase Urine WBC (Auto) Urine RBC (Auto) Amorphous Sediment Urine Bacteria Urine Opiates Screen Urine Methadone Screen Ur Barbiturates Screen Ur Phencyclidine Scrn Ur Amphetamines Screen U Benzodiazepines Scrn U Oth Cocaine Metabols U Cannabinoids Screen Alcohol, Quantitative 09/16/17 09/16/17 09/16/17 06:28 08:13 10:24 WBC RBC Hgb Hct MCV MCH MCHC RDW Plt Count MPV Neut % (Auto) Lymph % (Auto) [place] % (Auto) Eos % (Auto) Baso % (Auto) Neut # (Auto) Lymph # (Auto) [place] # (Auto) Eos # (Auto) Baso # (Auto) PT INR APTT Sodium Potassium Chloride Carbon Dioxide Anion Gap BUN Creatinine Est GFR ( Amer) Est GFR (Non-Af Amer) POC Glucose (mg/dL) 127 H Random Glucose Hemoglobin A1c Calcium Phosphorus Magnesium Total Bilirubin AST ALT Alkaline Phosphatase Total Creatine Kinase 350 H CK-MB (Mass) 2.09 Troponin I < 0.0120 Total Protein Albumin Globulin Albumin/Globulin Ratio Triglycerides Cholesterol LDL Cholesterol Direct HDL Cholesterol Free T4 TSH 3rd Generation Urine Color Yellow Urine Clarity Hazy Urine pH 5.0 Ur Specific [place] 1.019 Urine Protein Negative Urine Glucose (UA) Normal Urine Ketones Negative Urine Blood 1+ H Urine Nitrate Negative Urine Bilirubin Negative Urine Urobilinogen Normal Ur Leukocyte Esterase Neg Urine WBC (Auto) 1 Urine RBC (Auto) 1 Amorphous Sediment Rare H Urine Bacteria Rare Urine Opiates Screen Urine Methadone Screen Ur Barbiturates Screen Ur Phencyclidine Scrn Ur Amphetamines Screen U Benzodiazepines Scrn U Oth Cocaine Metabols U Cannabinoids Screen Alcohol, Quantitative 09/16/17 09/16/17 09/16/17 12:04 16:27 16:36 WBC RBC Hgb Hct MCV MCH MCHC RDW Plt Count MPV Neut % (Auto) Lymph % (Auto) [place] % (Auto) Eos % (Auto) Baso % (Auto) Neut # (Auto) Lymph # (Auto) [place] # (Auto) Eos # (Auto) Baso # (Auto) PT INR APTT Sodium Potassium Chloride Carbon Dioxide Anion Gap BUN Creatinine Est GFR ( Amer) Est GFR (Non-Af Amer) POC Glucose (mg/dL) 118 H 141 H Random Glucose Hemoglobin A1c Calcium Phosphorus Magnesium Total Bilirubin AST ALT Alkaline Phosphatase Total Creatine Kinase 391 H CK-MB (Mass) 1.34 Troponin I < 0.0120 Total Protein Albumin Globulin Albumin/Globulin Ratio Triglycerides Cholesterol LDL Cholesterol Direct HDL Cholesterol Free T4 TSH 3rd Generation Urine Color Urine Clarity Urine pH Ur Specific [place] Urine Protein Urine Glucose (UA) Urine Ketones Urine Blood Urine Nitrate Urine Bilirubin Urine Urobilinogen Ur Leukocyte Esterase Urine WBC (Auto) Urine RBC (Auto) Amorphous Sediment Urine Bacteria Urine Opiates Screen Urine Methadone Screen Ur Barbiturates Screen Ur Phencyclidine Scrn Ur Amphetamines Screen U Benzodiazepines Scrn U Oth Cocaine Metabols U Cannabinoids Screen Alcohol, Quantitative Assessment & Plan - Assessment and Plan (Free Text) Assessment: 46 yr old male who has now had 2 seizures, unprovoked, and will need anitepileptic medications. I will start him on keppra and monitor. 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 PLan; 1. Start keppra at 1000 mg iv now and 750 mg bid. 2. EEG done and will be reported. our team will follow. Dr. Shepherd.
[2017-09-16] MEDS ORDERED: levETIRAcetam 1,000 MG in Sodium Chloride 0.9% 100 ML IVPB ONE (21:21)
[2017-09-17 06:36] LABS: BASO # 0.1 K/uL (0.0-0.2); BASO % 0.7 % (0.0-2.0); EOS # 0.2 K/uL (0.0-0.7); EOS % 2.3 % (0.0-4.0); HEMOGLOBIN 13.8 g/dL (12.0-18.0); LYMPH # 2.2 K/uL (1.0-4.3); LYMPH % 29.7 % (20.0-40.0); MEAN CELL VOLUME 80.5 fL (80.0-94.0); MEAN CORPUSCULAR HGB CONC 34.7 g/dL (33.0-37.0); MEAN PLATELET VOLUME 8.6 fL (7.2-11.7); MONO # 0.5 K/uL (0.0-0.8); MONO % 6.7 % (0.0-10.0); NEUT # 4.4 K/uL (1.8-7.0); NEUT % 60.6 % (50.0-75.0); NRBC % 0.1 % (0.0-2.0); RBC 4.93 Mil/uL (4.40-5.90); RED CELL DISTRIBUTION WIDTH 14.2 % (11.5-14.5); WHITE BLOOD COUNT 7.3 K/uL (4.8-10.8)
--- NOTE | 2017-09-17 06:39 | CP.PCM.PN ---
Subjective - Date & Time of Evaluation Date of Evaluation: 09/17/17 Time of Evaluation: 06:35 - Subjective Subjective: Mr. Karla Sanders was seen and examined at the bedside in ICU. He is alert, oriented x 3. He denies any headache, dizziness, lightheadedness, weakness. He remains with swelling in his right eye and unable to open, left pupils is reactive to light accommodation. He has the right facial ecchymosis with tenderness. He is able to follow all commands, moves all extremities spontaneously.. There was no untoward events overnight. Objective - Vital Signs/Intake and Output Vital Signs (last 24 hours): Temp Pulse Resp BP Pulse Ox 98.5 F 68 13 106/56 L 96 09/17/17 04:00 09/17/17 04:00 09/17/17 04:00 09/17/17 04:00 09/17/17 04:00 Intake and Output: 09/16/17 09/17/17 18:59 06:59 Intake Total 125 600 Output Total 450 300 Balance -325 300 - Medications Medications: Current Medications Acetaminophen (Tylenol 325mg Tab) 650 mg PO Q6 PRN PRN Reason: Fever >100.4 F Levetiracetam 750 mg/ Sodium (Chloride) 107.5 mls @ 420 mls/hr IVPB Q12H INDY Insulin Aspart (Novolog) 0 unit SC ACHS INDY PRN Reason: Protocol Last Admin: 09/16/17 21:30 Dose: Not Given Ketorolac Tromethamine (Toradol) 15 mg IV Q6 PRN PRN Reason: Pain, severe (8-10) Ondansetron HCl (Zofran Inj) 4 mg IVP Q6 PRN PRN Reason: Nausea/Vomiting Pantoprazole Sodium (Protonix Ec Tab) 40 mg PO DAILY INDY Last Admin: 09/16/17 09:47 Dose: 40 mg Rosuvastatin Calcium (Crestor) 10 mg PO HS [facility] Last Admin: 09/16/17 21:49 Dose: 10 mg - Labs Labs: 09/16/17 02:01 09/16/17 02:01 PT 10.9 SECONDS (9.7-12.2) 09/16/17 02:01 INR 1.0 09/16/17 02:01 APTT 31 SECONDS (21-34) 05/01/18 02:01 - Constitutional Appears: No Acute Distress - Head Exam Head Exam: NORMAL INSPECTION - Eye Exam Pupil Exam: PERRL Additional comments: left eye 3 mm, right eye has periorbital swelling secondary to fall. - Neurological Exam Neurological Exam: Alert, Awake, Oriented x3 Neuro motor strength exam: Left Upper Extremity: 5, Right Upper Extremity: 5, Left Lower Extremity: 5, Right Lower Extremity: 5 Additional comments: He is alert, oriented, follows all commands, sensation is intact. Assessment and Plan (1) Status post seizure Assessment & Plan: Case discussed with Dr. Shepherd, continue all current medical and physical therapies. Pending EEG result. Status: Acute
[2017-09-17 07:07] LABS: ALB/GLOB RATIO 1.2 (1.0-2.1); ALT/SGPT 48 U/L (21-72); AST/SGOT 29 U/L (17-59); BLOOD UREA NITROGEN 23 mg/dL (9-20); CALCIUM 8.9 mg/dl (8.6-10.4); GFR AFRICAN-AMERICAN > 60; GFR NON-AFRICAN AMERICAN > 60
[2017-09-17] MEDS: (Novolog) Insulin Aspart, Recombinant 100 u/ml 10 ml vial SC SCH ×3 (07:36→16:37)
[2017-09-17] MEDS: Pantoprazole 40 mg EC Tab PO SCH (10:01)
--- NOTE | 2017-09-17 12:48 | CARD ---
APPROVED REPORT EKG Measurement Heart [id number] 142P17 [id number] <Conclusion> Normal sinus rhythm Inferolateral ST elevation, cannot rule out early repolarization Normal ECG
--- NOTE | 2017-09-17 12:49 | CARD ---
APPROVED REPORT EKG Measurement Heart [id number] ND 150P5 [id number] <Conclusion> Normal sinus rhythm Inferior wall DC in progress Normal ECG
--- NOTE | 2017-09-17 12:50 | CARD ---
APPROVED REPORT EKG Measurement Heart [id number] DC 142P12 [id number] <Conclusion> Normal sinus rhythm Inferior wall TN in progress Normal ECG
--- NOTE | 2017-09-17 12:51 | CARD ---
APPROVED REPORT EKG Measurement Heart [id number] NM 142P6 [id number] <Conclusion> Normal sinus rhythm Early repolarization Normal ECG
--- NOTE | 2017-09-17 12:52 | CARD ---
APPROVED REPORT EKG Measurement Heart [id number] ID [id number] <Conclusion> Reversed arm leads needs a repeat Abnormal ECG
--- NOTE | 2017-09-17 17:02 | CP.PCM.DIS ---
<Pilar Medina - Last Filed: 09/17/17 17:03> Provider - Provider Date of Admission: 09/16/17 03:56 Attending physician: Flavio Waldron MD Time Spent in preparation of Discharge (in minutes): 35 Diagnosis - Discharge Diagnosis (1) Status post seizure Status: Acute (2) Prophylactic measure Status: Acute Hospital Course - Lab Results Lab Results: Micro Results 09/16/17 05:17 Naris MRSA Culture (Admit) - Final MRSA NOT DETECTED 09/16/17 04:13 Blood-Venous Blood Culture - Preliminary NO GROWTH AFTER 24 HOURS 09/16/17 04:13 Blood-Venous Blood Culture - Preliminary NO GROWTH AFTER 24 HOURS 09/16/17 06:28 Urine,Clean Catch Urine Culture - Final No Growth (<1,000 CFU/ML) Most Recent Lab Values WBC 7.3 K/uL (4.8-10.8) 09/17/17 06:25 RBC 4.93 Mil/uL (4.40-5.90) 09/17/17 06:25 Hgb 13.8 g/dL (12.0-18.0) 09/17/17 06:25 Hct 39.7 % (35.0-51.0) 09/17/17 06:25 MCV 80.5 fL (80.0-94.0) 09/17/17 06:25 MCH 28.0 pg (27.0-31.0) 09/17/17 06:25 MCHC 34.7 g/dL (33.0-37.0) 09/17/17 06:25 RDW 14.2 % (11.5-14.5) 09/17/17 06:25 Plt Count 251 K/uL (130-400) 09/17/17 06:25 MPV 8.6 fL (7.2-11.7) 09/17/17 06:25 Neut % (Auto) 60.6 % (50.0-75.0) 09/17/17 06:25 Lymph % (Auto) 29.7 % (20.0-40.0) 09/17/17 06:25 V[place] % (Auto) 6.7 % (0.0-10.0) 09/17/17 06:25 Eos % (Auto) 2.3 % (0.0-4.0) 09/17/17 06:25 Baso % (Auto) 0.7 % (0.0-2.0) 09/17/17 06:25 Neut # (Auto) 4.4 K/uL (1.8-7.0) 09/17/17 06:25 Lymph # (Auto) 2.2 K/uL (1.0-4.3) 09/17/17 06:25 V[place] # (Auto) 0.5 K/uL (0.0-0.8) 09/17/17 06:25 Eos # (Auto) 0.2 K/uL (0.0-0.7) 09/17/17 06:25 Baso # (Auto) 0.1 K/uL (0.0-0.2) 09/17/17 06:25 PT 10.9 SECONDS (9.7-12.2) 09/16/17 02:01 INR 1.0 09/16/17 02:01 APTT 31 SECONDS (21-34) 09/16/17 02:01 Sodium 141 mmol/L (132-148) 09/17/17 06:26 Potassium 4.2 mmol/L (3.6-5.2) 09/17/17 06:26 Chloride 104 mmol/L (98-107) 09/17/17 06:26 Carbon Dioxide 25 mmol/L (22-30) 09/17/17 06:26 Anion Gap 17 (10-20) 09/17/17 06:26 BUN 23 mg/dL (9-20) H 09/17/17 06:26 Creatinine 1.1 mg/dL (0.8-1.5) 09/17/17 06:26 Est GFR ( Amer) > 60 09/17/17 06:26 Est GFR (Non-Af Amer) > 60 09/17/17 06:26 POC Glucose (mg/dL) 110 mg/dL (65-110) 09/17/17 16:25 Random Glucose 127 mg/dL (75-110) H 09/17/17 06:26 Hemoglobin A1c 7.5 % (4.2-6.5) H 09/16/17 04:44 Calcium 8.9 mg/dl (8.6-10.4) 09/17/17 06:26 Phosphorus 2.7 mg/dL (2.5-4.5) 09/16/17 04:44 Magnesium 2.1 mg/dL (1.6-2.3) 09/16/17 04:44 Total Bilirubin 1.0 mg/dL (0.2-1.3) 09/17/17 06:26 AST 29 U/L (17-59) 09/17/17 06:26 ALT 48 U/L (21-72) 09/17/17 06:26 Alkaline Phosphatase 107 U/L (38-126) 09/17/17 06:26 Total Creatine Kinase 391 U/L (55-170) H 09/16/17 16:36 CK-MB (Mass) 1.34 ng/mL (0.0-3.38) 09/16/17 16:36 Troponin I < 0.0120 ng/mL (0.00-0.120) 09/16/17 16:36 Total Protein 7.3 g/dL (6.3-8.3) 09/17/17 06:26 Albumin 4.0 g/dL (3.5-5.0) 09/17/17 06:26 Globulin 3.3 gm/dL (2.2-3.9) 09/17/17 06:26 Albumin/Globulin Ratio 1.2 (1.0-2.1) 09/17/17 06:26 Triglycerides 702 mg/dL (0-149) H 09/16/17 04:44 Cholesterol 314 mg/dL (0-199) H 09/16/17 04:44 LDL Cholesterol Direct 104 mg/dL (0-129) 09/16/17 04:44 HDL Cholesterol 33 mg/dL (30-70) 09/16/17 04:44 Free T4 1.20 ng/dL (0.78-2.19) 09/16/17 04:44 TSH 3rd Generation 1.58 mIU/L (0.46-4.68) 09/16/17 04:44 Urine Color Yellow (YELLOW) 09/16/17 06:28 Urine Clarity Hazy (Clear) 09/16/17 06:28 Urine pH 5.0 (5.0-8.0) 09/16/17 06:28 Ur Specific Gaffney 1.019 (1.003-1.030) 09/16/17 06:28 Urine Protein Negative mg/dL (NEGATIVE) 09/16/17 06:28 Urine Glucose (UA) Normal mg/dL (Normal) 09/16/17 06:28 Urine Ketones Negative mg/dL (NEGATIVE) 09/16/17 06:28 Urine Blood 1+ (NEGATIVE) H 09/16/17 06:28 Urine Nitrate Negative (NEGATIVE) 09/16/17 06:28 Urine Bilirubin Negative (NEGATIVE) 09/16/17 06:28 Urine Urobilinogen Normal mg/dL (0.2-1.0) 09/16/17 06:28 Ur Leukocyte Esterase Neg Fabrizio/uL (Negative) 09/16/17 06:28 Urine WBC (Auto) 1 /hpf (0-5) 09/16/17 06:28 Urine RBC (Auto) 1 /hpf (0-3) 09/16/17 06:28 Amorphous Sediment Rare /ul (<OCC) H 09/16/17 06:28 Urine Bacteria Rare (<OCC) 09/16/17 06:28 Urine Opiates Screen Negative (NEGATIVE) 09/16/17 03:41 Urine Methadone Screen Negative (NEGATIVE) 09/16/17 03:41 Ur Barbiturates Screen Negative (NEGATIVE) 09/16/17 03:41 Ur Phencyclidine Scrn Negative (NEGATIVE) 09/16/17 03:41 Ur Amphetamines Screen Negative (NEGATIVE) 09/16/17 03:41 U Benzodiazepines Scrn Negative (NEGATIVE) 09/16/17 03:41 U Oth Cocaine Metabols Negative (NEGATIVE) 09/16/17 03:41 U Cannabinoids Screen Negative (NEGATIVE) 09/16/17 03:41 Alcohol, Quantitative < 10 mg/dl (0-10) 09/16/17 02:55 - Hospital Course Hospital Course: HPI ( As per admission): This patient is a 46yo M who is coming to the hospital s/p fall at 10:00pm witnessed by ; he states he does not remember any of the event and has a laceration on his right forehead (now sutured and closed). he states that this happened to him one year ago, and was never told why it happens. He denies any inciting events, denies chest pain before the fall, current chest pain, or any other symptoms; denies fevers/chills, REAVES, CP, SOB, abdominal pain, N/V/D, dysuria/urgency/frequency, or lower extremity swelling/pain. As per mother who lives with with him, she states this happened one year prior very similarly. She saw him shaking on the ground, convulsing. The patient denies any tongue biting/fecal incontinence/urinary incontinence. He has never been on seizure medication. Hospital Course: Patient was admitted with the diagnosis of seizure. Neurologist, Dr. Shepherd was consulted who recommended an EEG and to start Keppra 750mg PO BID. Upon admission, patient's right-sided periorbital laceration post-seizure was repaired by surgical training specialist. In addition, plastic surgeon, Dr. Franks was consulted for noted foreign body on Maxillofacial CT, who documented the laceration is well approximated. There is no infection. THe wound was well irrigated before being closed and plans to let heal. If the FB bothers him because it is palpable, it can be removed at a later time after his acute hospitalization is resolved. In addition, patient was noted to have dyslipidemia and diabetes; patient was made aware of this over 2 months ago. Patient was started discharged on appropriate medications. Patient remained stable over the course of admission with no seizure activity. Patient was discharged with appropriate instructions and medications Pertinent imaging: HEAD CT: No intracranial hemorrhage. Nonspecific white matter changes Brain MRI without contrast: Trace subcortical white matter changes are appreciate the bilateral frontal and temporal lobes as well as the left parietal lobe the spare the corpus callosum and is well as remaining white matter throughout the remainder of the brain. This is a nonspecific pattern could reflect early chronic microangiopathy in a patient with a vasculopathic disorder, but if not, then hypertension or migraine headaches or other pathologies are not excluded including vasculitis Lyme disease and demyelination and follow-up MRI with contrast is advised to complete MR evaluation of the brain. Remainder the brain appears unremarkable. Maxillofacial CT:Bones/joints: No acute fracture. Soft tissues: RIGHT periorbital soft tissue swelling/irregularity. Few small radiopaque foreign bodies and/or calcifications about RIGHT periorbital region. Dermal calcifications. Orbits: Unremarkable as visualized. Sinuses: Scattered minimal to mild mucosal thickening. Few retention cysts. No air-fluid levels. Dental: Periapical lucency compatible with dental disease. Cervical CT: No fracture. Echo: Normal bi-ventricular function. No valvular abnormality and no pericardial effusion. LV normal size. Discharge Exam - Head Exam Head Exam: NORMAL INSPECTION Additional comments: Right sided periorbital laceration, sutured and closed - Eye Exam Eye Exam: Normal appearance - ENT Exam ENT Exam: Mucous Membranes Moist - Respiratory Exam Respiratory Exam: Clear to PA & Lateral, NORMAL BREATHING PATTERN. absent: Chest Wall Tenderness, Decreased Breath Sounds, Rales - Cardiovascular Exam Cardiovascular Exam: REGULAR RHYTHM, +S1, +S2 - GI/Abdominal Exam GI & Abdominal Exam: Normal Bowel Sounds, Soft. absent: Diminished Bowel Sounds , Distended, Guarding, Tenderness - Extremities Exam Extremities exam: normal inspection - Neurological Exam Neurological exam: Alert, Normal Gait, Oriented x3 - Skin Skin Exam: Normal Color Discharge Plan - Discharge Medications Prescriptions: Aspirin [Adult Aspirin Regimen] 81 mg PO DAILY 30 Days #30 tablet. Atorvastatin [Lipitor] 20 mg PO DAILY 30 Days #30 tab Levetiracetam [Keppra] 750 mg PO BID 30 Days #60 tablet Lisinopril [Zestril] 2.5 mg PO DAILY 30 Days #30 tablet metFORMIN [glucOPHAGE] 500 mg PO BID 30 Days #60 tab - Follow Up Plan Condition: FAIR Disposition: HOME/ ROUTINE Instructions: Type 2 Diabetes, Seizures, Adult (DC), Aspirin, Atorvastatin, Levetiracetam, Metformin, Syncope (DC) Additional Instructions: Please discharge patient home Please start the following medications: 1. Aspirin 81mg PO daily ( Please take 1 tablet at breakfast time, daily) 2. Metformin 500mg PO BID ( Please take 1 tablet at breakfast time and dinner time, 9am and 9pm, twice daily) 3. Lipitor 20mg PO HS ( Please take 1 tablet at dinner time, 9pm daily ) 4. Keppra 750mg PO BID ( Please take 1 tablet at breakfast time and dinner time , 9am and 9pm, twice daily) Please follow up with [facility] within a week of discharge, Please follow up with field agronomist, Radha Orellana Please follow up with Neurologist, Dr. Shepherd and follow up EEG results. Please apply ice pack to right sided periorbital three times a day Please return to the hospital if vision loss, blurry vision, swelling of the right eye, unbearable headache Please take care Referrals: [facility] [Provider Group] Salo Shepherd MD [Staff Provider] - Radha Orellana, RN [Help Desk Engineer] - <Laron Curiel - Last Filed: 09/18/17 07:45> Provider - Provider Date of Admission: 09/16/17 03:56 Attending physician: Flavio Waldron MD Hospital Course - Lab Results Lab Results: Micro Results 09/16/17 05:17 Naris MRSA Culture (Admit) - Final MRSA NOT DETECTED 09/16/17 04:13 Blood-Venous Blood Culture - Preliminary NO GROWTH AFTER 24 HOURS 09/16/17 04:13 Blood-Venous Blood Culture - Preliminary NO GROWTH AFTER 24 HOURS 09/16/17 06:28 Urine,Clean Catch Urine Culture - Final No Growth (<1,000 CFU/ML) Most Recent Lab Values WBC 7.3 K/uL (4.8-10.8) 09/17/17 06:25 RBC 4.93 Mil/uL (4.40-5.90) 09/17/17 06:25 Hgb 13.8 g/dL (12.0-18.0) 09/17/17 06:25 Hct 39.7 % (35.0-51.0) 09/17/17 06:25 MCV 80.5 fL (80.0-94.0) 09/17/17 06:25 MCH 28.0 pg (27.0-31.0) 09/17/17 06:25 MCHC 34.7 g/dL (33.0-37.0) 09/17/17 06:25 RDW 14.2 % (11.5-14.5) 09/17/17 06:25 Plt Count 251 K/uL (130-400) 09/17/17 06:25 MPV 8.6 fL (7.2-11.7) 09/17/17 06:25 Neut % (Auto) 60.6 % (50.0-75.0) 09/17/17 06:25 Lymph % (Auto) 29.7 % (20.0-40.0) 09/17/17 06:25 [place] % (Auto) 6.7 % (0.0-10.0) 09/17/17 06:25 Eos % (Auto) 2.3 % (0.0-4.0) 09/17/17 06:25 Baso % (Auto) 0.7 % (0.0-2.0) 09/17/17 06:25 Neut # (Auto) 4.4 K/uL (1.8-7.0) 09/17/17 06:25 Lymph # (Auto) 2.2 K/uL (1.0-4.3) 09/17/17 06:25 [place] # (Auto) 0.5 K/uL (0.0-0.8) 09/17/17 06:25 Eos # (Auto) 0.2 K/uL (0.0-0.7) 09/17/17 06:25 Baso # (Auto) 0.1 K/uL (0.0-0.2) 09/17/17 06:25 PT 10.9 SECONDS (9.7-12.2) 09/16/17 02:01 INR 1.0 09/16/17 02:01 APTT 31 SECONDS (21-34) 09/16/17 02:01 Sodium 141 mmol/L (132-148) 09/17/17 06:26 Potassium 4.2 mmol/L (3.6-5.2) 09/17/17 06:26 Chloride 104 mmol/L (98-107) 09/17/17 06:26 Carbon Dioxide 25 mmol/L (22-30) 09/17/17 06:26 Anion Gap 17 (10-20) 09/17/17 06:26 BUN 23 mg/dL (9-20) H 09/17/17 06:26 Creatinine 1.1 mg/dL (0.8-1.5) 09/17/17 06:26 Est GFR ( Amer) > 60 09/17/17 06:26 Est GFR (Non-Af Amer) > 60 09/17/17 06:26 POC Glucose (mg/dL) 110 mg/dL (65-110) 09/17/17 16:25 Random Glucose 127 mg/dL (75-110) H 09/17/17 06:26 Hemoglobin A1c 7.5 % (4.2-6.5) H 09/16/17 04:44 Calcium 8.9 mg/dl (8.6-10.4) 09/17/17 06:26 Phosphorus 2.7 mg/dL (2.5-4.5) 09/16/17 04:44 Magnesium 2.1 mg/dL (1.6-2.3) 09/16/17 04:44 Total Bilirubin 1.0 mg/dL (0.2-1.3) 09/17/17 06:26 AST 29 U/L (17-59) 09/17/17 06:26 ALT 48 U/L (21-72) 09/17/17 06:26 Alkaline Phosphatase 107 U/L (38-126) 09/17/17 06:26 Total Creatine Kinase 391 U/L (55-170) H 09/16/17 16:36 CK-MB (Mass) 1.34 ng/mL (0.0-3.38) 09/16/17 16:36 Troponin I < 0.0120 ng/mL (0.00-0.120) 09/16/17 16:36 Total Protein 7.3 g/dL (6.3-8.3) 09/17/17 06:26 Albumin 4.0 g/dL (3.5-5.0) 09/17/17 06:26 Globulin 3.3 gm/dL (2.2-3.9) 09/17/17 06:26 Albumin/Globulin Ratio 1.2 (1.0-2.1) 09/17/17 06:26 Triglycerides 702 mg/dL (0-149) H 09/16/17 04:44 Cholesterol 314 mg/dL (0-199) H 09/16/17 04:44 LDL Cholesterol Direct 104 mg/dL (0-129) 09/16/17 04:44 HDL Cholesterol 33 mg/dL (30-70) 09/16/17 04:44 Free T4 1.20 ng/dL (0.78-2.19) 09/16/17 04:44 TSH 3rd Generation 1.58 mIU/L (0.46-4.68) 09/16/17 04:44 Urine Color Yellow (YELLOW) 09/16/17 06:28 Urine Clarity Hazy (Clear) 09/16/17 06:28 Urine pH 5.0 (5.0-8.0) 09/16/17 06:28 Ur Specific Gaffney 1.019 (1.003-1.030) 09/16/17 06:28 Urine Protein Negative mg/dL (NEGATIVE) 09/16/17 06:28 Urine Glucose (UA) Normal mg/dL (Normal) 09/16/17 06:28 Urine Ketones Negative mg/dL (NEGATIVE) 09/16/17 06:28 Urine Blood 1+ (NEGATIVE) H 09/16/17 06:28 Urine Nitrate Negative (NEGATIVE) 09/16/17 06:28 Urine Bilirubin Negative (NEGATIVE) 09/16/17 06:28 Urine Urobilinogen Normal mg/dL (0.2-1.0) 09/16/17 06:28 Ur Leukocyte Esterase Neg Fabrizio/uL (Negative) 09/16/17 06:28 Urine WBC (Auto) 1 /hpf (0-5) 09/16/17 06:28 Urine RBC (Auto) 1 /hpf (0-3) 09/16/17 06:28 Amorphous Sediment Rare /ul (<OCC) H 09/16/17 06:28 Urine Bacteria Rare (<OCC) 09/16/17 06:28 Urine Opiates Screen Negative (NEGATIVE) 09/16/17 03:41 Urine Methadone Screen Negative (NEGATIVE) 09/16/17 03:41 Ur Barbiturates Screen Negative (NEGATIVE) 09/16/17 03:41 Ur Phencyclidine Scrn Negative (NEGATIVE) 09/16/17 03:41 Ur Amphetamines Screen Negative (NEGATIVE) 09/16/17 03:41 U Benzodiazepines Scrn Negative (NEGATIVE) 09/16/17 03:41 U Oth Cocaine Metabols Negative (NEGATIVE) 09/16/17 03:41 U Cannabinoids Screen Negative (NEGATIVE) 09/16/17 03:41 Alcohol, Quantitative < 10 mg/dl (0-10) 09/16/17 02:55 Attending/Attestation - Attestation I have personally seen and examined this patient.: Yes I have fully participated in the care of the patient.: Yes I have reviewed all pertinent clinical information, including history, physical exam and plan: Yes Notes (Text): 09/18/17 07:41 Medical attending: Please note, the resident note reports that the patient's is at bedside however if I remember that was his mother at bedside Reguardless the patient will need to continue with FRANCESCO Tavarezra and also follow up in the [facility] for follow up. He has had CT of the brain as well as MRI of the brain. Also CT of the facial bones as well. He has sutures over the right eye brow following his fall and laceration. Laron Curiel
[2017-09-17 17:32] VITALS: BP 123/84; RESP 20; TEMP 99.3; O2SAT 96
[2017-09-17 18:55] VITALS: PULSE 74
== END 2017-09-17 18:50 | disposition home or self-care (01) | DRG 101 ==
LOC: C.ER 01:32 → C.9E 03:56 → C.9I 04:33
PROVIDERS: ADMIT Internal Medicine; ATTEND Internal Medicine
PROC: 0HQ1XZZ Repair Face Skin, External Approach (ICD-10-PCS; principal; 2017-09-16)
DX: G40.909 Epilepsy, unspecified, not intractable, without status epilepticus (principal); S01.82XA Laceration with foreign body of other part of head, initial encounter; S00.83XA Contusion of other part of head, initial encounter; S80.211A Abrasion, right knee, initial encounter; W19.XXXA Unspecified fall, initial encounter; E78.5 Hyperlipidemia, unspecified; F17.210 Nicotine dependence, cigarettes, uncomplicated; E11.9 Type 2 diabetes mellitus without complications; K08.9 Disorder of teeth and supporting structures, unspecified; Y92.002 Bathroom of unspecified non-institutional (private) residence as the place of occurrence of the external cause; Z79.84 Long term (current) use of oral hypoglycemic drugs